=== PATIENT | female | born 1990 | race Caucasian/White ===

== ENCOUNTER 2017-03-02 01:13 | Emergency (ER) | payer SELFPAY ==
[2017-03-02 01:14] VITALS: BMI 26.3
[2017-03-02 01:19] VITALS: BP 126/87
--- NOTE | 2017-03-02 02:30 | ED PDOC ---
Arrival/HPI <RadhaElias rivera - Last Filed: 03/02/17 03:04> <SKINNY MOHR - Last Filed: 03/02/17 03:15> - General Chief Complaint: Cough, Cold, Congestion Time Seen by Provider: 03/02/17 01:23 - History of Present Illness Narrative History of Present Illness (Text): 03/02/17 02:29 Saida Martinez is a 26 year old female who presents to the emergency department complaining of coughing up blood. The patient reports that 30 min prior to admission she began to cough uncontrollably until she vomited a few times. After vomiting she noticed the taste of blood in her mouth and began to cough up bright red blood. She is unable to quantify how much blood she coughed up. She reports feeling a tearing sensation in her throat when vomiting. Immediately following the coughing fit she describes having difficulty breathing and pain in left side of her throat. She describes a catching sensation in her throat when swallowing that makes it difficult for her to breath. Associated symptoms include sore throat previous to this evening. She does report her boyfriend is sick with sore throat. She denies fever, night sweats, and previous episodes of cough induced emesis. (SKINNY MOHR) Past Medical History - Provider Review Nursing Documentation Reviewed: Yes <GloriaElias - Last Filed: 03/02/17 03:04> - Provider Review Nursing Documentation Reviewed: Yes - Past History Past History: No Previous - Infectious Disease Hx of Infectious Diseases: None - Tetanus Immunization Tetanus Immunization: Unknown - Past Medical History Past Medical History: No Previous - Psychiatric Hx Depression: No Hx Emotional Abuse: No Hx Physical Abuse: No Hx Substance Use: No - Past Surgical History Past Surgical History: No Previous - Suicidal Assessment Feels Threatened In Home Enviroment: No <SKINNY MOHR - Last Filed: 03/02/17 03:15> Family/Social History - Physician Review Nursing Documentation Reviewed: Yes Family/Social History: No Known Family HX <RadhaElias rivera - Last Filed: 03/02/17 03:04> Family/Social History: No Known Family HX Smoking Status: Light Smoker < 10 Cigarettes Daily Hx Alcohol Use: No Hx Substance Use: No Hx Substance Use Treatment: No <SKINNY MOHR - Last Filed: 03/02/17 03:15> Allergies/Home Meds <Elias Castro - Last Filed: 03/02/17 03:04> <ELVIASKINNY - Last Filed: 03/02/17 03:15> Allergies/Adverse Reactions: Allergies Penicillins Allergy (Verified 03/02/17 01:15) RASH Review of Systems - Physician Review All systems were reviewed & negative as marked: Yes <Elias Castro - Last Filed: 03/02/17 03:04> - Review of Systems Constitutional: absent: Fatigue, Weight Change, Fevers Eyes: absent: Vision Changes ENT: Voice Changes, Sore Throat. absent: Rhinorrhea Respiratory: SOB, Cough Cardiovascular: absent: Chest Pain, Palpitations Gastrointestinal: Abdominal Pain Skin: absent: Rash, Pruritis Neurological: absent: Headache, Dizziness Endocrine: absent: Diaphoresis <SKINNY MOHR - Last Filed: 03/02/17 03:15> Physical Exam Vital Signs Reviewed: Yes Temperature: Afebrile Blood Pressure: Normal Pulse: Tachycardic Respiratory Rate: Normal Appearance: Positive for: Uncomfortable Pain Distress: Mild Mental Status: Positive for: Alert and Oriented X 3 - Systems Exam Head: Present: Atraumatic, Normocephalic Pupils: Present: PERRL Extroacular Muscles: Present: EOMI Conjunctiva: Present: Normal Mouth: Present: Moist Mucous Membranes, Normal Tounge, Normal Teeth Pharnyx: Present: ERYTHEMA, TONSILS ENLARGED, Muffled/Hoarse Voice. No: Strider Neck: Present: Normal Range of Motion, Lymphadenopathy (left side) Respiratory/Chest: Present: Clear to Auscultation, Good Air Exchange. No: Respiratory Distress, Accessory Muscle Use, Wheezes Cardiovascular: Present: Regular Rate and Rhythm, Normal S1, S2. No: Murmurs Abdomen: Present: Tenderness (mid epigastric ), Normal Bowel Sounds. No: Distention, Peritoneal Signs, Guarding Upper Extremity: Present: Normal Inspection, NORMAL PULSES. No: Cyanosis, Edema Lower Extremity: Present: Normal Inspection, NORMAL PULSES. No: Edema Neurological: Present: GCS=15, CN II-XII Intact, Speech Normal Skin: Present: Warm, Dry <SKINNY MOHR - Last Filed: 03/02/17 03:15> Vital Signs Temp Pulse Resp BP Pulse Ox 03/02/17 01:18 99.0 F 100 H 15 126/87 96 Medical Decision Making - RAD Interpretation Jig Box Operator: ED Physician <Elias Castro - Last Filed: 03/02/17 03:04> - Lab Interpretations I have reviewed the lab results: Yes <SKINNY MOHR - Last Filed: 03/02/17 03:15> ED Course and Treatment: Impression: Pt seen and evaluated with medical research associate. Pt presented for hemoptysis tonight. Pt states she coughing, had an episode of post-tussive vomiting, and noted bright red blood. Aware and agree with HPI, clinical findings, plan, and management. Plan: -- CXR -- Labs, throat culture, rapid strep -- Reassess and disposition (Elias Castro) 03/02/17 02:43 Impression: Ms. Martinez is a 26 year old female complaining of coughing up blood with difficulty breathing. DDX: - coughing induced emesis - erosive gastiris Plan: -- Benadryl, Solumedrol, Pepcid Progress Notes: 03/02/17 03:14 (SKINNY MOHR) - Lab Interpretations Lab Results: 03/02/17 02:20 Lab Results 03/02/17 02:20: WBC 8.4, RBC 4.32, Hgb 12.4, Hct 37.3, MCV 86.3, MCH 28.7, MCHC 33.2, RDW 14.0, Plt Count 248, MPV 9.8 03/02/17 01:50: Grp A Beta Strep Ag Negative - RAD Interpretation Radiology Orders: 03/02/17 01:42 CHEST PORTABLE [RAD] Stat - Medication Orders Current Medication Orders: Discontinued Medications Clarithromycin (Biaxin Susp) 500 mg PO ONCE STA PRN Reason: Protocol Stop: 03/02/17 02:59 Dexamethasone (Decadron Inj) 10 mg IM STAT STA Stop: 03/02/17 02:58 Disposition/Present on Arrival <Elias Castro - Last Filed: 03/02/17 03:04> - Present on Arrival Any Indicators Present on Arrival: No History of DVT/PE: No History of Uncontrolled Diabetes: No Urinary Catheter: No History of Decub. Ulcer: No History Surgical Site Infection Following: None - Disposition Have Diagnosis and Disposition been Completed?: Yes Disposition Time: 03:15 <DIANA MOHROPHE - Last Filed: 03/02/17 03:15> - Disposition Diagnosis: Pharyngitis, Hemoptysis Disposition: HOME/ ROUTINE Condition: IMPROVED Discharge Instructions (ExitCare): Pharyngitis (ED), Hemoptysis (ED) Additional Instructions: soft diet Prescriptions: Clarithromycin susp [Biaxin] 500 mg PO BID #200 ml Referrals: Harman Lyon DO [[facility]] - Follow up with primary
[2017-03-02 02:33] LABS: HEMOGLOBIN 12.4 gm/dL (12.0-16.0); MEAN CELL VOLUME 86.3 fL (80.0-105.0); MEAN CORPUSCULAR HEMOGLOBIN 28.7 pg (25.0-35.0); MEAN CORPUSCULAR HGB CONC 33.2 g/dl (31.0-37.0); MEAN PLATELET VOLUME 9.8 fl (7.0-11.0); RBC 4.32 10^6/uL (3.5-6.1); WHITE BLOOD COUNT 8.4 10^3/ul (4.5-11.0)
[2017-03-02] MEDS ORDERED: Clarithromycin Susp 125 MG/5 ML PO STA (02:58)
[2017-03-02 03:32] VITALS: PULSE 84; RESP 18; TEMP 98.7; O2SAT 97
--- NOTE | 2017-03-02 07:10 | RAD ---
HISTORY: coughing up blood COMPARISON: No prior. FINDINGS: LUNGS: No active pulmonary disease. PLEURA: No significant pleural effusion identified, no pneumothorax apparent. CARDIOVASCULAR: Normal. OSSEOUS STRUCTURES: No significant abnormalities. VISUALIZED UPPER ABDOMEN: Normal. OTHER FINDINGS: None. IMPRESSION: No active disease.
== END 2017-03-02 03:34 | disposition home or self-care (01) ==
LOC: ED 01:13
DX: J02.9 Acute pharyngitis, unspecified (principal); R04.2 Hemoptysis
CPT/HCPCS: 71010; 85027; 87070; 87430; 96372; 99283; J1100